=== PATIENT | female | born 1930 | race Caucasian/White ===

== ENCOUNTER 2018-09-30 23:21 | Inpatient (IN) | payer MEDICARE, OTHER ==
[~2018-09-30] VITALS: Ht 162.6 cm; Wt 72.6 kg
[2018-09-30 23:25] VITALS: BP 127/62
[2018-09-30] MEDS ORDERED: CRESTOR10 M2 ORAL (23:25)
[2018-09-30] MEDS ORDERED: ISOSORBIDE DINI10 M1 PO (23:25)
[2018-09-30] MEDS ORDERED: METOPROLOL SUCC25 MG ORAL (23:25)
[2018-09-30] MEDS ORDERED: ASPIR 8181 MG ORAL (23:25)
[2018-09-30] MEDS ORDERED: METFORMIN HCL500 M1 ORAL (23:25)
[2018-10-01] VITALS (7 sets, daily range): BP systolic 115–150; BP diastolic 53–94
[2018-10-01 00:05] LABS: BASOPHILS % (AUTO) 0.8 % (0.0-2.0); EOSINOPHILS % (AUTO) 2.8 % (0.0-3.0); HEMATOCRIT 30.6 % (37.0-47.0); LYMPHOCYTES % (AUTO) 17.8 % (20.0-45.0); MEAN CORPUSCULAR VOLUME 91 FL (80-99); NEUTROPHILS % (AUTO) 74.6 % (45.0-75.0); PLATELET COUNT 353 K/UL (150-450); RED BLOOD COUNT 3.36 M/UL (4.20-5.40); WHITE BLOOD COUNT 14.3 K/UL (4.8-10.8)
--- NOTE | 2018-10-01 00:24 | Diagnostic Imaging Report ---
EXAM: CT Head Without Intravenous Contrast CLINICAL HISTORY: SYNCOPE TECHNIQUE: Axial computed tomography images of the head/brain without intravenous contrast. CTDI is 70.38 mGy and DLP is 1435 mGy-cm. One or more of the following dose reduction techniques were used: automated exposure control, adjustment of the mA and/or kV according to patient size, use of iterative reconstruction technique. COMPARISON: No relevant prior studies available. FINDINGS: Brain: No hemorrhage. No mass effect. Atrophy. White matter hypodensities. Encephalomalacia right MCA territory. No CT evidence for acute large vessel infarct. MRI more sensitive, if indicated. Ventricles: Prominent compatible with atrophy. Ex vacuo dilatation of the right lateral ventricle. Bones/joints: Hyperostosis Sinuses: Well aerated as visualized. Mastoid air cells: Well aerated as visualized. IMPRESSION: No acute intracranial findings
--- NOTE | 2018-10-01 00:33 | Diagnostic Imaging Report ---
EXAM: XR Chest, 1 View CLINICAL HISTORY: SYNCOPE TECHNIQUE: Frontal view of the chest. COMPARISON: No relevant prior studies available. FINDINGS/IMPRESSION: Patient slightly rotated. Suspect cardiac silhouette borderline in size allowing for technique. Suspect mild blunting of left costophrenic angle related to summation. Small pleural effusion less likely. No overt edema, consolidation or other acute cardiopulmonary findings.
[2018-10-01 00:38] LABS: INR 0.9 (0.9-1.1)
--- NOTE | 2018-10-01 00:50 | Emergency Room Report ---
History of Present Illness General Chief Complaint: Syncope Source: Family Member, EMS Present Illness HPI Patient presents after syncopal episode. She was unresponsive for a short period time while she was sitting up. The patient has dementia and therefore her symptoms are difficult to ascertain. According to her daughter she complains about chronic back pain and also right sided back chest pain. She feels this is more a positional problem as the patient spends long hours sitting without being moved much. The patient is mostly bedridden. There is no vomiting associated with this. The patient's been able to eat without difficulty. They deny any fever. The patient recently underwent a vascular procedure for peripheral vascular disease at [facility]. The patient has a history of atrial fibrillation and is taking Elaquis and aspirin. Post stroke. Attempt to review medical records only reveal outpatient ophthalmologic surgery. Allergies: Coded Allergies: No Known Allergies (Unverified , 09/30/18) Patient History Limited by: medical condition Past Medical History: see triage record, old chart reviewed Social History: Denies: smoking Social History Narrative SNF Last Menstrual Period: n/a Now: No Reviewed Nursing Documentation: PMH: Agreed; PSxH: Agreed Nursing Documentation-PMH Past Medical History: No History, Except For Hx Hypertension: Yes Hx Diabetes: Yes Review of Systems All Other Systems: limited Physical Exam Vital Signs Date Time Temp Pulse Resp B/P (MAP) Pulse Ox O2 Delivery O2 Flow Rate FiO2 09/30/18 23:20 98.2 19 18 127/62 98 Room Air General Appearance: no apparent distress, non-toxic, Chronically Ill Eyes: bilateral eye normal inspection, bilateral eye PERRL ENT: moist mucus membranes Neck: full range of motion, supple Respiratory: lungs clear, normal breath sounds Cardiovascular #1: regular rate, rhythm Cardiovascular #2: 2+ radial (L) Gastrointestinal: normal inspection, normal bowel sounds, non tender, overweight Genitourinary: no CVA tenderness Musculoskeletal: other - extensor contractures L foot Neurologic: alert, motor weakness - L sided, other - babbling but occasionally answers daughter Psychiatric: mood/affect normal, other - no recent memory per daughter which is baseline Skin: normal color Medical Decision Making Diagnostic Impression: Primary Impression: Syncope Qualified Codes: R55 - Syncope and collapse Additional Impressions: UTI (urinary tract infection) Qualified Codes: N39.0 - Urinary tract infection, site not specified Leukocytosis Qualified Codes: D72.828 - Other elevated white blood cell count ER Course Patient who is unable to give history presents after observed syncope. DDX: AMI , ACS, arrhythmia, occult infection, electrolyte abnormality, dehydration amongst others. Evaluation with EKG, CT head, labs. Treatment with IV hydration. Higher risk of intracranial bleed as on blood thinners. EKG without injury - of note - she in is NST (not A fib). CXR no iniltrate. CT with old stroke. Labs with leukocytosis. UA with pyuria. Elevated BUN. Antibiotics begun. Discussed findings with Dr. Simeon and daughter. He will consult cardiology. Patient essentially the same. Needs admission to telemetry and continued evaluation. Patient stable for outpatient observation and treatment. Laboratory Tests Test 09/30/18 23:46 10/01/18 01:00 White Blood Count 14.3 K/UL (4.8-10.8) H Red Blood Count 3.36 M/UL (4.20-5.40) L Hemoglobin 10.0 G/DL (12.0-16.0) L Hematocrit 30.6 % (37.0-47.0) L Mean Corpuscular Volume 91 FL (80-99) Mean Corpuscular Hemoglobin 29.8 PG (27.0-31.0) Mean Corpuscular Hemoglobin Concent 32.7 G/DL (32.0-36.0) Red Cell Distribution Width 12.0 % (11.6-14.8) Platelet Count 353 K/UL (150-450) Mean Platelet Volume 5.8 FL (6.5-10.1) L Neutrophils (%) (Auto) 74.6 % (45.0-75.0) Lymphocytes (%) (Auto) 17.8 % (20.0-45.0) L Monocytes (%) (Auto) 4.0 % (1.0-10.0) Eosinophils (%) (Auto) 2.8 % (0.0-3.0) Basophils (%) (Auto) 0.8 % (0.0-2.0) Prothrombin Time 9.5 SEC (9.30-11.50) Prothrombin Time INR 0.9 (0.9-1.1) PTT 27 SEC (23-33) Sodium Level 135 MMOL/L (136-145) L Potassium Level 4.5 MMOL/L (3.5-5.1) Chloride Level 100 MMOL/L (98-107) Carbon Dioxide Level 24 MMOL/L (21-32) Anion Gap 11 mmol/L (5-15) Blood Urea Nitrogen 40 mg/dL (7-18) H Creatinine 1.3 MG/DL (0.55-1.30) Estimate Glomerular Filtration Rate mL/min (>60) Glucose Level 204 MG/DL (74-106) H Calcium Level 9.1 MG/DL (8.5-10.1) Total Bilirubin 0.3 MG/DL (0.2-1.0) Aspartate Amino Transferase (AST) 11 U/L (15-37) L Alanine Aminotransferase (ALT) 27 U/L (12-78) Alkaline Phosphatase 73 U/L (46-116) Total Creatine Kinase 25 U/L (26-308) L Troponin I 0.016 ng/mL (0.000-0.056) Pro-B-Type Natriuretic Peptide 273 pg/mL (0-125) H Total Protein 6.9 G/DL (6.4-8.2) Albumin 2.9 G/DL (3.4-5.0) L Globulin 4.0 g/dL Albumin/Globulin Ratio 0.7 (1.0-2.7) L Urine Color Pale yellow Urine Appearance Slightly cloudy Urine pH 6 (4.5-8.0) Urine Specific [place] 1.010 (1.005-1.035) Urine Protein 1+ (NEGATIVE) H Urine Glucose (UA) Negative (NEGATIVE) Urine Ketones Negative (NEGATIVE) Urine Blood 1+ (NEGATIVE) H Urine Nitrite Negative (NEGATIVE) Urine Bilirubin Negative (NEGATIVE) Urine Urobilinogen Normal MG/DL (0.0-1.0) Urine Leukocyte Esterase 3+ (NEGATIVE) H Urine RBC 0-2 /HPF (0 - 2) Urine WBC 15-20 /HPF (0 - 2) H Urine Squamous Epithelial Cells Moderate /LPF (NONE/OCC) H Urine Bacteria Few /HPF (NONE) Urine Yeast Few /HPF (NONE) H EKG Diagnostic Results Rate: normal Rhythm: NSR ST Segments: no acute changes Rhythm Strip Diag. Results EP Interpretation: yes Rhythm: NSR, no PVC's, no ectopy Chest X-Ray Diagnostic Results Chest X-Ray Diagnostic Results : Chest X-Ray Ordered: Yes # of Views/Limited/Complete: 1 View Indication: Other EP Interpretation: Yes Interpretation: no consolidation, no effusion, no pneumothorax, other - Senile chest Impression: Other Electronically Signed by: Electronically signed by Casper Brown MD CT/MRI/US Diagnostic Results CT/MRI/US Diagnostic Results : Imaging Test Ordered: head Impression R MCA encephalomalacia Last Vital Signs Date Time Temp Pulse Resp B/P (MAP) Pulse Ox O2 Delivery O2 Flow Rate FiO2 10/01/18 06:00 Room Air 10/01/18 04:00 76 10/01/18 04:00 97.3 16 121/57 (78) 98 Status: improved Disposition: ADMITTED INPATIENT Condition: Serious Referrals: LUPE SIMEON (PCP) Casper Brown MD Oct 01, 2018 00:50
[2018-10-01 00:56] LABS: ANION GAP 11 mmol/L (5-15); BLOOD UREA NITROGEN 40 mg/dL (7-18); CALCIUM 9.1 MG/DL (8.5-10.1); CARBON DIOXIDE 24 MMOL/L (21-32); CHLORIDE 100 MMOL/L (98-107); CREATININE 1.3 MG/DL (0.55-1.30); POTASSIUM 4.5 MMOL/L (3.5-5.1); SODIUM 135 MMOL/L (136-145)
[2018-10-01 01:10] LABS: ALANINE AMINOTRANSFERASE 27 U/L (12-78); ALBUMIN 2.9 G/DL (3.4-5.0); ALBUMIN/GLOBULIN RATIO 0.7 (1.0-2.7); ALKALINE PHOSPHATASE 73 U/L (46-116); ASPARTATE AMINO TRANSFERASE 11 U/L (15-37); BILIRUBIN,TOTAL 0.3 MG/DL (0.2-1.0); CREATINE KINASE 25 U/L (26-308)
[2018-10-01 01:39] LABS: APPEARANCE,URINE SLIGHTLY CLOUDY; BILIRUBIN, URINE NEGATIVE (NEGATIVE); COLOR,URINE PALE YELLOW; GLUCOSE, URINE (UA) NEGATIVE (NEGATIVE); KETONES,URINE NEGATIVE (NEGATIVE); LEUKOCYTE ESTERASE ,URINE 3+ (NEGATIVE); NITRITE,URINE NEGATIVE (NEGATIVE); PH,URINE 6 (4.5-8.0); PROTEIN,URINE 1+ (NEGATIVE); UROBILINOGEN,URINE NORMAL MG/DL (0.0-1.0)
[2018-10-01] MEDS ORDERED: cefTRIAXone 1 GM in D5W 55 ML IVPB ONE (02:00)
[2018-10-01] MEDS ORDERED: TraZODone 50mg tab ORAL PRN (03:00)
[2018-10-01 06:05] LABS: BASOPHILS % (AUTO) 0.5 % (0.0-2.0); EOSINOPHILS % (AUTO) 0.9 % (0.0-3.0); HEMATOCRIT 31.9 % (37.0-47.0); HEMOGLOBIN 10.2 G/DL (12.0-16.0); LYMPHOCYTES % (AUTO) 14.2 % (20.0-45.0); MEAN CORPUSCULAR VOLUME 93 FL (80-99); MONOCYTES % (AUTO) 2.5 % (1.0-10.0); PLATELET COUNT 359 K/UL (150-450); RED BLOOD COUNT 3.44 M/UL (4.20-5.40); RED CELL DISTRIBUTION WIDTH 12.2 % (11.6-14.8); WHITE BLOOD COUNT 12.2 K/UL (4.8-10.8)
[2018-10-01 06:24] LABS: ANION GAP 8 mmol/L (5-15); BLOOD UREA NITROGEN 41 mg/dL (7-18); CALCIUM 9.4 MG/DL (8.5-10.1); CARBON DIOXIDE 27 MMOL/L (21-32); CHLORIDE 100 MMOL/L (98-107); CREATININE 1.3 MG/DL (0.55-1.30); POTASSIUM 5.4 MMOL/L (3.5-5.1); SODIUM 135 MMOL/L (136-145)
[2018-10-01] MEDS: NovoLOG Insulin Flexpen SUBQ SCH ×4 (06:33→21:54)
[2018-10-01] MEDS: Aspirin Baby 81mg ORAL SCH (08:42)
[2018-10-01] MEDS: Eliquis 2.5mg tablet ORAL SCH ×2 (08:42→18:10)
[2018-10-01] MEDS ORDERED: Sodium Polystyrene Sulfonate 15gm Powder ORAL SCH (09:00)
[2018-10-01] MEDS ORDERED: Metoprolol Succinate XL 25mg tab ORAL SCH (09:00)
--- NOTE | 2018-10-01 14:20 | History & Physical ---
History of Present Illness General Date patient seen: Oct 01, 2018 Reason for Hospitalization: Syncope Present Illness HPI H & P dictated [id number] Nabila Simeon< Allergies: Coded Allergies: No Known Allergies (Unverified , 09/30/18) Medication History Scheduled Aspirin* (Aspir 81*), 81 MG ORAL DAILY, (Reported) Metformin Hcl* (Metformin Hcl*), 500 MG ORAL TWICE A DAY, (Reported) Metoprolol Succinate* (Metoprolol Succinate*), 25 MG ORAL DAILY, (Reported) Rosuvastatin Calcium* (Crestor*), 10 MG ORAL DAILY, (Reported) Miscellaneous Medications Isosorbide Dinitrate (Isosorbide Dinitrate), 10 MG PO, (Reported) Patient History Healthcare decision maker Resuscitation status Full Code Advanced Directive on File Review of Systems Review of Symptoms General ROS: no weight loss or fever Psychological ROS: no depression or mood changes, no memory loss Ophthalmic ROS: no visual changes or eye irritation ENT ROS: no nasal congestion, hearing loss, dizziness Allergy and Immunology ROS: no allergic symptoms or urticaria Hematological and Lymphatic ROS: no swollen glands, unusual bleeding or bruising Endocrine ROS: no polyuria, polydipsia, weight changes, temperature intolerance Respiratory ROS: no cough, shortness of breath, or wheezing Cardiovascular ROS: no chest pain or dyspnea on exertion Gastrointestinal ROS: denies abdominal pain, bright red blood in stool. Musculoskeletal ROS: no myalgias or arthralgias Neurological ROS: no TIA or stroke symptoms Dermatological ROS: no new or changing skin lesions, rashes or pruritis Physical Exam Physical Exam General appearance: alert, cooperative, no distress, appears stated age Head: Normocephalic, without obvious abnormality, atraumatic Eyes: conjunctivae/corneas clear. PERRL, EOM's intact. Fundi benign Throat: Lips, mucosa, and tongue normal. Teeth and gums normal Neck: supple, symmetrical, trachea midline, no adenopathy, thyroid: not enlarged, symmetric, no tenderness/mass/nodules, no carotid bruit and no JVD Lungs: clear to auscultation bilaterally Heart: regular rate and rhythm, S1, S2 normal, no murmur, click, rub or gallop Abdomen: soft, non-tender. Bowel sounds normal. No masses, no organomegaly Extremities: extremities normal, atraumatic, no cyanosis or edema Pulses: 2+ and symmetric Skin: Skin color, texture, turgor normal. No rashes or lesions Neurologic: Grossly normal Last 24 Hour Vital Signs Date Time Temp Pulse Resp B/P (MAP) Pulse Ox O2 Delivery O2 Flow Rate FiO2 10/01/18 12:00 98.0 87 20 150/73 (98) 96 10/01/18 11:27 85 10/01/18 08:43 115/94 10/01/18 08:42 84 115/94 10/01/18 08:00 97.0 84 20 115/94 (101) 99 10/01/18 07:36 86 10/01/18 06:00 Room Air 10/01/18 06:00 Room Air 10/01/18 04:00 76 10/01/18 04:00 97.3 77 16 121/57 (78) 98 10/01/18 03:01 77 10/01/18 02:30 98.2 79 18 124/76 97 Room Air 10/01/18 02:20 Room Air 10/01/18 02:20 97.9 75 16 135/53 (80) 98 10/01/18 01:41 98.2 77 18 119/71 97 Room Air 09/30/18 23:25 98.2 82 18 127/62 98 Room Air 09/30/18 23:20 98.2 19 18 127/62 98 Room Air Intake and Output 09/30/18 10/01/18 19:00 07:00 Intake Total 0 ml Balance 0 ml Intake Oral 0 ml Laboratory Tests Test 09/30/18 23:46 10/01/18 01:00 10/01/18 04:30 10/01/18 10:00 White Blood Count 14.3 K/UL (4.8-10.8) H 12.2 K/UL (4.8-10.8) H Red Blood Count 3.36 M/UL (4.20-5.40) L 3.44 M/UL (4.20-5.40) L Hemoglobin 10.0 G/DL (12.0-16.0) L 10.2 G/DL (12.0-16.0) L Hematocrit 30.6 % (37.0-47.0) L 31.9 % (37.0-47.0) L Mean Corpuscular Volume 91 FL (80-99) 93 FL (80-99) Mean Corpuscular Hemoglobin 29.8 PG (27.0-31.0) 29.6 PG (27.0-31.0) Mean Corpuscular Hemoglobin Concent 32.7 G/DL (32.0-36.0) 32.0 G/DL (32.0-36.0) Red Cell Distribution Width 12.0 % (11.6-14.8) 12.2 % (11.6-14.8) Platelet Count 353 K/UL (150-450) 359 K/UL (150-450) Mean Platelet Volume 5.8 FL (6.5-10.1) L 5.9 FL (6.5-10.1) L Neutrophils (%) (Auto) 74.6 % (45.0-75.0) 82.0 % (45.0-75.0) H Lymphocytes (%) (Auto) 17.8 % (20.0-45.0) L 14.2 % (20.0-45.0) L Monocytes (%) (Auto) 4.0 % (1.0-10.0) 2.5 % (1.0-10.0) Eosinophils (%) (Auto) 2.8 % (0.0-3.0) 0.9 % (0.0-3.0) Basophils (%) (Auto) 0.8 % (0.0-2.0) 0.5 % (0.0-2.0) Prothrombin Time 9.5 SEC (9.30-11.50) Prothromb Time International Ratio 0.9 (0.9-1.1) Activated Partial Thromboplast Time 27 SEC (23-33) Sodium Level 135 MMOL/L (136-145) L 135 MMOL/L (136-145) L Potassium Level 4.5 MMOL/L (3.5-5.1) 5.4 MMOL/L (3.5-5.1) H Chloride Level 100 MMOL/L (98-107) 100 MMOL/L (98-107) Carbon Dioxide Level 24 MMOL/L (21-32) 27 MMOL/L (21-32) Anion Gap 11 mmol/L (5-15) 8 mmol/L (5-15) Blood Urea Nitrogen 40 mg/dL (7-18) H 41 mg/dL (7-18) H Creatinine 1.3 MG/DL (0.55-1.30) 1.3 MG/DL (0.55-1.30) Estimat Glomerular Filtration Rate mL/min (>60) mL/min (>60) Glucose Level 204 MG/DL (74-106) H 232 MG/DL (74-106) H Calcium Level 9.1 MG/DL (8.5-10.1) 9.4 MG/DL (8.5-10.1) Total Bilirubin 0.3 MG/DL (0.2-1.0) Aspartate Amino Transf (AST/SGOT) 11 U/L (15-37) L Alanine Aminotransferase (ALT/SGPT) 27 U/L (12-78) Alkaline Phosphatase 73 U/L (46-116) Total Creatine Kinase 25 U/L (26-308) L Troponin I 0.016 ng/mL (0.000-0.056) 0.012 ng/mL (0.000-0.056) 0.001 ng/mL (0.000-0.056) Pro-B-Type Natriuretic Peptide 273 pg/mL (0-125) H Total Protein 6.9 G/DL (6.4-8.2) Albumin 2.9 G/DL (3.4-5.0) L Globulin 4.0 g/dL Albumin/Globulin Ratio 0.7 (1.0-2.7) L Urine Color Pale yellow Urine Appearance Slightly cloudy Urine pH 6 (4.5-8.0) Urine Specific [place] 1.010 (1.005-1.035) Urine Protein 1+ (NEGATIVE) H Urine Glucose (UA) Negative (NEGATIVE) Urine Ketones Negative (NEGATIVE) Urine Blood 1+ (NEGATIVE) H Urine Nitrite Negative (NEGATIVE) Urine Bilirubin Negative (NEGATIVE) Urine Urobilinogen Normal MG/DL (0.0-1.0) Urine Leukocyte Esterase 3+ (NEGATIVE) H Urine RBC 0-2 /HPF (0 - 2) Urine WBC 15-20 /HPF (0 - 2) H Urine Squamous Epithelial Cells Moderate /LPF (NONE/OCC) H Urine Bacteria Few /HPF (NONE) Urine Yeast Few /HPF (NONE) H Microbiology Date/Time Source Procedure Growth Status 10/01/18 01:00 Rectum Received Height (Feet): 5 Height (Inches): 4.00 Weight (Pounds): 160 Medications Current Medications Medications (Trade) Dose Ordered Sig/Dulce Maria Route PRN Reason Start Time Stop Time Status Last Admin Dose Admin Acetaminophen (Tylenol) 650 mg Q6H PRN ORAL Mild Pain/Temp > 100.5 10/01/18 03:00 10/31/18 02:59 Apixaban (Eliquis) 5 mg BID ORAL 10/01/18 09:00 10/31/18 08:59 10/01/18 08:42 Aspirin (ASA) 81 mg DAILY ORAL 10/01/18 09:00 10/31/18 08:59 10/01/18 08:42 Atorvastatin Calcium (Lipitor) 40 mg BEDTIME ORAL 10/01/18 21:00 10/31/18 20:59 Ceftriaxone Sodium 1 gm/ Dextrose 55 ml @ 110 mls/hr Q24H IVPB 10/02/18 02:00 10/09/18 01:59 Dextrose (Dextrose 50%) 25 ml Q30M PRN IV Hypoglycemia 10/01/18 03:15 10/31/18 03:14 Dextrose (Dextrose 50%) 50 ml Q30M PRN IV Hypoglycemia 10/01/18 03:15 10/31/18 03:14 Insulin Aspart (NovoLOG) BEFORE MEALS AND HS SUBQ 10/01/18 06:30 10/31/18 06:29 10/01/18 12:39 Isosorbide Dinitrate (Isordil) 10 mg DAILY ORAL 10/01/18 09:00 10/31/18 08:59 10/01/18 08:43 Metoprolol Succinate (Toprol XL) 25 mg DAILY ORAL 10/01/18 09:00 10/31/18 08:59 10/01/18 08:42 Pantoprazole (Protonix) 40 mg DAILY ORAL 10/01/18 09:00 10/31/18 08:59 10/01/18 08:43 Trazodone HCl (Desyrel) 50 mg BEDTIME PRN ORAL Insomnia 10/01/18 03:00 10/31/18 02:59 10/01/18 03:29 [facility] Hospital declaration INPATIENT level of care is warranted for this patient because patient is a 89 year old with who presents with suspicion of . I have a high level of concern because . Patient is at high risk for . Plan of care/treatment include . Patient care is expected to be greater than 2 midnights. OBSERVATION level of care is warranted for this patient. Patient is a 89 year old with who presents with . Patient will be admitted for 1 midnight, but if additional night(s) is/are necessary, patient will be converted to inpatient status for the entire hospitalization Disposition: Once the patient is stable to leave the hospital, I anticipate the patient will likely be discharged to the following environment: Estimated discharge date: I spent 70 minutes on this patient's case, and minutes was dedicated to counseling and/or care coordination. MIPS (Merit-based Incentive Payment System) Applicable CPT: 50376, 66610 CHECK ALL THAT ARE MET: Measure #5 (CHF): All ages. Prescribe ALEXSANDRA/ARB upon discharge for patients with left ventricular systolic dysfunction. If not, the reason is clearly documented in the medical chart. Measure #8 (CHF): All ages. Prescribe a beta huong upon discharge for patients with left ventricular systolic dysfunction. If not, the reason is clearly documented in the medical chart. Measure #47 Advance care plan or surrogate decision maker documented in the medical record. Measure #130 The provider has documented, updated, or reviewed the patients current medication list and has documented it in the patients note. Measure #374 (All): Send report to referring provider. Measure #407(Sepsis due to MSSA bacteremia): Age 18+ Patient treated with a beta-lactam antibiotic (Nafcillin, Oxacillin or Cefazolin) as definitive therapy. MEDICAL COMPLEXITY High complexity medical decision making (need 2/3 categories) Problem - need 4 points Acute/new problem with new plan for workup (4 points, 1 max) Acute/new problem without additional workup (3 points, 1 max) Unstable chronic problem actively being managed (2 point each, 2 max) Stable chronic problem actively being managed (1 point each, 2 max) Self-limited/transient process (constipation, muscle ache, etc) (1 point each , 2 max) Data - need 4 points Reviewed labs/imaging studies (1 points, 2 max) Independent review of imaging (EKG, xrays, etc) (2 points, 2 max) Discussed case with consult/other MD/RN (2 points, 2 max) High Risk - qualify if have one of the following: Severe exacerbation of acute problem, acute mental status change, IV narcotics , monitoring drug levels (vancomycin, INR, tacrolimus etc) Nabila Simeon MD Oct 01, 2018 14:20
--- NOTE | 2018-10-01 15:18 | Cardiology Report ---
APPROVED REPORT EXAM: Two-dimensional and M-mode echocardiogram with Doppler and color Doppler. INDICATION Syncope M-Mode DIMENSIONS IVSd1.4 (0.7-1.1cm)Left Atrium (MM)3.7 (1.6-4.0cm) LVDd4.9 (3.5-5.6cm)Aortic Root3.1 (2.0-3.7cm) PWd1.1 (0.7-1.1cm)Aortic Cusp Exc.1.6 (1.5-2.0cm) LVDs2.9 (2.5-4.0cm) PWs1.4 cm Normal left ventricular chamber size, systolic function and wall motion. Left ventricular ejection fraction estimated to be 60 %. Mild left ventricular hypertrophy. Anterior Echo-free space, may be due to pericardial fat or effusion. All other cardiac chamber sizes are within normal limits. Focal aortic valve sclerosis with adequate cusp excursion. Thickened mitral valve leaflets with normal excursion. Mild mitral annulus and aortic root calcification. Pulmonic valve not well visualized. Normal tricuspid valve structure. IVC is normal in size with physiological collapse. A color flow and spectral Doppler study was performed and revealed: No aortic insufficiency. No mitral regurgitation. Mitral diastolic velocities suggest mild left ventricular diastolic dysfunction (Grade I). Trace tricuspid regurgitation. Tricuspid systolic velocities suggests peak right ventricular systolic pressure of 14 mmHg. No pulmonic regurgitation present.
--- NOTE | 2018-10-01 16:32 | Consultation ---
History of Present Illness General Date patient seen: Oct 01, 2018 Chief Complaint: Syncope Referring physician: Dr. Brady Caceres Present Illness HPI Alec Heller is an 88-year-old woman with a history of coronary artery disease , atrial fibrillation (on Elaquis), stroke, dementia, remote history of myocardial infarction, type 2 diabetes, hyperlipidemia, hypertension, and peripheral vascular disease, who was admitted following a syncopal episode. It is reported that, while eating dinner with her family, she slumped over and became transiently unresponsive. According to her daughter she complains about chronic back pain and also right sided back chest pain. She feels this is more a positional problem as the patient spends long hours sitting without being moved much. The patient is mostly bedridden/ chair bound. At the time of my visit, she is alert, interactive and following general commands. She is Farsi speaking only so her precise orientation cannot be obtained. However she is not in any distress and completely alert at this time. Allergies: Coded Allergies: No Known Allergies (Unverified , 09/30/18) Medication History Scheduled Aspirin* (Aspir 81*), 81 MG ORAL DAILY, (Reported) Metformin Hcl* (Metformin Hcl*), 500 MG ORAL TWICE A DAY, (Reported) Metoprolol Succinate* (Metoprolol Succinate*), 25 MG ORAL DAILY, (Reported) Rosuvastatin Calcium* (Crestor*), 10 MG ORAL DAILY, (Reported) Miscellaneous Medications Isosorbide Dinitrate (Isosorbide Dinitrate), 10 MG PO, (Reported) Patient History Limited by: language barrier History Provided By: Medical Record Healthcare decision maker Resuscitation status Full Code Advanced Directive on File Review of Systems All Other Systems: negative except mentioned in HPI Physical Exam General Appearance: WD/WN, no apparent distress, alert, confused HEENT: normocephalic, atraumatic, anicteric, mucous membranes moist, PERRL, EOMI, pharynx normal, supple, no JVD Neck: non-tender, normal alignment, supple, normal inspection Respiratory/Chest: chest wall non-tender Extremities: normal range of motion, non-tender, normal inspection, no calf tenderness, normal capillary refill, non-pitting Skin Exam: normal pigmentation, warm/dry Neurologic: roll tester II-XII grossly normal, no motor/sensory deficits, alert, responsive, normal mood/affect Last 24 Hour Vital Signs Date Time Temp Pulse Resp B/P (MAP) Pulse Ox O2 Delivery O2 Flow Rate FiO2 10/01/18 16:00 97.6 80 20 143/71 (95) 98 10/01/18 12:00 98.0 87 20 150/73 (98) 96 10/01/18 11:27 85 10/01/18 08:43 115/94 10/01/18 08:42 84 115/94 10/01/18 08:00 97.0 84 20 115/94 (101) 99 10/01/18 07:36 86 10/01/18 06:00 Room Air 10/01/18 06:00 Room Air 10/01/18 04:00 76 10/01/18 04:00 97.3 77 16 121/57 (78) 98 10/01/18 03:01 77 10/01/18 02:30 98.2 79 18 124/76 97 Room Air 10/01/18 02:20 Room Air 10/01/18 02:20 97.9 75 16 135/53 (80) 98 10/01/18 01:41 98.2 77 18 119/71 97 Room Air 09/30/18 23:25 98.2 82 18 127/62 98 Room Air 09/30/18 23:20 98.2 19 18 127/62 98 Room Air Intake and Output 09/30/18 10/01/18 19:00 07:00 Intake Total 0 ml Balance 0 ml Intake Oral 0 ml Laboratory Tests Test 09/30/18 23:46 10/01/18 01:00 10/01/18 04:30 10/01/18 10:00 White Blood Count 14.3 K/UL (4.8-10.8) H 12.2 K/UL (4.8-10.8) H Red Blood Count 3.36 M/UL (4.20-5.40) L 3.44 M/UL (4.20-5.40) L Hemoglobin 10.0 G/DL (12.0-16.0) L 10.2 G/DL (12.0-16.0) L Hematocrit 30.6 % (37.0-47.0) L 31.9 % (37.0-47.0) L Mean Corpuscular Volume 91 FL (80-99) 93 FL (80-99) Mean Corpuscular Hemoglobin 29.8 PG (27.0-31.0) 29.6 PG (27.0-31.0) Mean Corpuscular Hemoglobin Concent 32.7 G/DL (32.0-36.0) 32.0 G/DL (32.0-36.0) Red Cell Distribution Width 12.0 % (11.6-14.8) 12.2 % (11.6-14.8) Platelet Count 353 K/UL (150-450) 359 K/UL (150-450) Mean Platelet Volume 5.8 FL (6.5-10.1) L 5.9 FL (6.5-10.1) L Neutrophils (%) (Auto) 74.6 % (45.0-75.0) 82.0 % (45.0-75.0) H Lymphocytes (%) (Auto) 17.8 % (20.0-45.0) L 14.2 % (20.0-45.0) L Monocytes (%) (Auto) 4.0 % (1.0-10.0) 2.5 % (1.0-10.0) Eosinophils (%) (Auto) 2.8 % (0.0-3.0) 0.9 % (0.0-3.0) Basophils (%) (Auto) 0.8 % (0.0-2.0) 0.5 % (0.0-2.0) Prothrombin Time 9.5 SEC (9.30-11.50) Prothromb Time International Ratio 0.9 (0.9-1.1) Activated Partial Thromboplast Time 27 SEC (23-33) Sodium Level 135 MMOL/L (136-145) L 135 MMOL/L (136-145) L Potassium Level 4.5 MMOL/L (3.5-5.1) 5.4 MMOL/L (3.5-5.1) H Chloride Level 100 MMOL/L (98-107) 100 MMOL/L (98-107) Carbon Dioxide Level 24 MMOL/L (21-32) 27 MMOL/L (21-32) Anion Gap 11 mmol/L (5-15) 8 mmol/L (5-15) Blood Urea Nitrogen 40 mg/dL (7-18) H 41 mg/dL (7-18) H Creatinine 1.3 MG/DL (0.55-1.30) 1.3 MG/DL (0.55-1.30) Estimat Glomerular Filtration Rate mL/min (>60) mL/min (>60) Glucose Level 204 MG/DL (74-106) H 232 MG/DL (74-106) H Calcium Level 9.1 MG/DL (8.5-10.1) 9.4 MG/DL (8.5-10.1) Total Bilirubin 0.3 MG/DL (0.2-1.0) Aspartate Amino Transf (AST/SGOT) 11 U/L (15-37) L Alanine Aminotransferase (ALT/SGPT) 27 U/L (12-78) Alkaline Phosphatase 73 U/L (46-116) Total Creatine Kinase 25 U/L (26-308) L Troponin I 0.016 ng/mL (0.000-0.056) 0.012 ng/mL (0.000-0.056) 0.001 ng/mL (0.000-0.056) Pro-B-Type Natriuretic Peptide 273 pg/mL (0-125) H Total Protein 6.9 G/DL (6.4-8.2) Albumin 2.9 G/DL (3.4-5.0) L Globulin 4.0 g/dL Albumin/Globulin Ratio 0.7 (1.0-2.7) L Urine Color Pale yellow Urine Appearance Slightly cloudy Urine pH 6 (4.5-8.0) Urine Specific [place] 1.010 (1.005-1.035) Urine Protein 1+ (NEGATIVE) H Urine Glucose (UA) Negative (NEGATIVE) Urine Ketones Negative (NEGATIVE) Urine Blood 1+ (NEGATIVE) H Urine Nitrite Negative (NEGATIVE) Urine Bilirubin Negative (NEGATIVE) Urine Urobilinogen Normal MG/DL (0.0-1.0) Urine Leukocyte Esterase 3+ (NEGATIVE) H Urine RBC 0-2 /HPF (0 - 2) Urine WBC 15-20 /HPF (0 - 2) H Urine Squamous Epithelial Cells Moderate /LPF (NONE/OCC) H Urine Bacteria Few /HPF (NONE) Urine Yeast Few /HPF (NONE) H Microbiology Date/Time Source Procedure Growth Status 10/01/18 01:00 Rectum Received Height (Feet): 5 Height (Inches): 4.00 Weight (Pounds): 160 Medications Current Medications Medications (Trade) Dose Ordered Sig/Dulce Maria Route PRN Reason Start Time Stop Time Status Last Admin Dose Admin Acetaminophen (Tylenol) 650 mg Q6H PRN ORAL Mild Pain/Temp > 100.5 10/01/18 03:00 10/31/18 02:59 Apixaban (Eliquis) 5 mg BID ORAL 10/01/18 09:00 10/31/18 08:59 10/01/18 08:42 Aspirin (ASA) 81 mg DAILY ORAL 10/01/18 09:00 10/31/18 08:59 10/01/18 08:42 Atorvastatin Calcium (Lipitor) 40 mg BEDTIME ORAL 10/01/18 21:00 10/31/18 20:59 Ceftriaxone Sodium 1 gm/ Dextrose 55 ml @ 110 mls/hr Q24H IVPB 10/02/18 02:00 10/09/18 01:59 Dextrose (Dextrose 50%) 25 ml Q30M PRN IV Hypoglycemia 10/01/18 03:15 10/31/18 03:14 Dextrose (Dextrose 50%) 50 ml Q30M PRN IV Hypoglycemia 10/01/18 03:15 10/31/18 03:14 Insulin Aspart (NovoLOG) BEFORE MEALS AND HS SUBQ 10/01/18 06:30 10/31/18 06:29 10/01/18 12:39 Isosorbide Dinitrate (Isordil) 10 mg DAILY ORAL 10/01/18 09:00 10/31/18 08:59 10/01/18 08:43 Metoprolol Succinate (Toprol XL) 25 mg DAILY ORAL 10/01/18 09:00 10/31/18 08:59 10/01/18 08:42 Pantoprazole (Protonix) 40 mg DAILY ORAL 10/01/18 09:00 10/31/18 08:59 10/01/18 08:43 Trazodone HCl (Desyrel) 50 mg BEDTIME PRN ORAL Insomnia 10/01/18 03:00 10/31/18 02:59 10/01/18 03:29 Assessment/Plan Problem List: (1) Leukocytosis ICD Codes: D72.829 - Elevated white blood cell count, unspecified SNOMED: 499161258, 166184347 Qualifiers: Qualified Codes: D72.828 - Other elevated white blood cell count (2) UTI (urinary tract infection) ICD Codes: N39.0 - Urinary tract infection, site not specified SNOMED: 47794149, 573053422 Qualifiers: Qualified Codes: N39.0 - Urinary tract infection, site not specified (3) Syncope Assessment & Plan: Appears to be returned to baseline functioning. As per nursing report, family have visited with patient and patient is returned to baseline- interacting appropriately in Far with family members. She has dementia per report but has not been drowsy or unresponsive since her admitting episode. ICD Codes: R55 - Syncope and collapse SNOMED: 103780337 Qualifiers: Qualified Codes: R55 - Syncope and collapse Status: doing well, stable, tolerating diet Treatment Plan: Q4 Hour Neuro Checks Maintain SBP < 140 IV Hydration Abx as per ID for treatment of UTI Na 135-145 Prevent Delirium: Melatonin 3mg QHS Encourage frequent family visits Reorient patient frequently to location/circumstances Avoid administration of benzodiazapenes, anticholinergics, opioids or other sedating medications. Alanis Zapien N.P. Oct 01, 2018 16:32
[2018-10-01] MEDS ORDERED: traMADol 50mg tab ORAL PRN (19:45)
--- NOTE | 2018-10-01 21:29 | Consultation ---
Consult Note Consult Note Cardiology consult Full note dictated#[id number] An Hernandez MD Oct 01, 2018 21:28
[2018-10-01] MEDS: TraZODone 50mg tab ORAL PRN (21:52)
[2018-10-01] MEDS: Lactobacillus-GG tablet ORAL SCH (21:53)
[2018-10-01] MEDS: Atorvastatin 20mg tab ORAL SCH (21:53)
[2018-10-01] MEDS: HydrALAZINE 25mg tab ORAL SCH (21:53)
--- NOTE | 2018-10-01 22:15 | Consultation ---
DATE OF CONSULTATION: 10/01/2018 CARDIOLOGY CONSULTATION CONSULTING PHYSICIAN: An Hernandez M.D. REQUESTING PHYSICIAN: Nabila Simeon M.D. I am covering for Dr. Scott. REASON FOR CONSULT: Syncope. HISTORY OF PRESENT ILLNESS: This is an 88-year-old woman with a history of coronary artery disease, remote history of myocardial infarction, type 2 diabetes, hyperlipidemia, hypertension, and peripheral vascular disease, who was admitted following a syncopal episode. Per the patient's son, she was sitting eating dinner with her family when she suddenly slumped over and became transiently unresponsive. She was brought to the emergency room where her initial blood pressure is recorded at 143/71, pulse 80, respirations 20, and pulse oximeter 98% on room air. She was admitted for further treatment. She has been stable on telemetry. Review of her previous records from [facility] indicate that she had a recent echo showing an ejection fraction of 65% with a small inferior wall hypokinetic area and no significant valve disease. She also had a recent lower extremity revascularization procedure with left superficial femoral and popliteal atherectomy and right superficial femoral and popliteal angioplasty on 09/27/2018. PAST MEDICAL HISTORY: As noted above. 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 MEDICATIONS: Amlodipine 10 mg daily, Avapro 300 mg daily, ceftriaxone 1 g IV q.24 hours, Lipitor 40 mg daily, gabapentin 300 mg daily, hydralazine 25 mg q.12 hours, tramadol 100 mg q.6 hours p.r.n., apixaban 5 mg p.o. b.i.d., aspirin 81 mg daily, Protonix 40 mg p.o. daily, insulin sliding scale, and Tylenol p.r.n. ALLERGIES: No known drug allergies. SOCIAL HISTORY: The patient resides at a convalescent home. No history of alcohol or tobacco abuse. PHYSICAL EXAMINATION: VITAL SIGNS: Blood pressure is 143/71, pulse 80 and regular, respirations 20, and afebrile. GENERAL: Alert, elderly appearing white female, in no acute distress. HEENT: Normocephalic and atraumatic. Pupils are equal, round, and reactive to light. Sclerae anicteric. Oral mucosa are moist. NECK: Supple. There is no jugular venous distention. No carotid bruits. LUNGS: Clear to auscultation anteriorly. HEART: Regular S1, S2. No murmur or S3. ABDOMEN: Soft, obese, and nontender. No palpable mass. EXTREMITIES: A 1+ pedal edema bilaterally. A 1+ dorsalis pedis pulses bilaterally. LABORATORY AND DIAGNOSTIC DATA: Hemoglobin 10.2, hematocrit 31.9, and white blood count 12,200. Sodium 135, potassium 5.4, BUN 41, and creatinine 1.3. Troponin 0.01. Urinalysis 15 to 20 white blood cells, few bacteria, and 3+ leukocyte esterase. EKG shows normal sinus rhythm at the rate of 80 beats per minute. Q-waves inferiorly. No ST-segment or T-wave changes. PLAN AND ASSESSMENT: The patient is an 88-year-old woman with multiple chronic medical problems as noted above, who was admitted following a syncopal episode. She is Farsi speaking and history was obtained from the chart as well as from her family. She herself is unable to give much history. She is ruling out for myocardial infarction with negative troponins. She has not had any significant arrhythmias on telemetry. Review of the old records indicate that she has had a previous history of syncope felt due to autonomic dysfunction. I suspect that it is the case currently. She may have transiently become hypotensive or had hypotension due to volume depletion possibly related to her current urinary tract infection. I would favor continuing her current medications. Orthostatic vital signs can be obtained lying and sitting. However, she is not ambulatory, so standing vital signs would not be obtainable. We would maintain hydration and would treat for urinary tract infection. Empiric antibiotics have been started pending culture results. Dr. Scott will continue to follow the patient starting 10/03/2018. An Hernandez M.D. DR: KAYLEE JOB#: [id number] CC:
[2018-10-02] VITALS: BP 149/73
[2018-10-02] MEDS: cefTRIAXone 1 GM in D5W 55 ML IVPB SCH (02:17)
[2018-10-02 04:00] VITALS: BP 144/60
[2018-10-02 05:50] LABS: BASOPHILS % (AUTO) 1.1 % (0.0-2.0); EOSINOPHILS % (AUTO) 3.7 % (0.0-3.0); HEMATOCRIT 28.9 % (37.0-47.0); HEMOGLOBIN 9.4 G/DL (12.0-16.0); LYMPHOCYTES % (AUTO) 29.5 % (20.0-45.0); MEAN CORPUSCULAR VOLUME 91 FL (80-99); MONOCYTES % (AUTO) 5.5 % (1.0-10.0); NEUTROPHILS % (AUTO) 60.2 % (45.0-75.0); PLATELET COUNT 350 K/UL (150-450); RED BLOOD COUNT 3.17 M/UL (4.20-5.40); RED CELL DISTRIBUTION WIDTH 11.9 % (11.6-14.8); WHITE BLOOD COUNT 8.8 K/UL (4.8-10.8)
[2018-10-02 06:04] LABS: ANION GAP 6 mmol/L (5-15); BLOOD UREA NITROGEN 31 mg/dL (7-18); CALCIUM 9.2 MG/DL (8.5-10.1); CARBON DIOXIDE 29 MMOL/L (21-32); CHLORIDE 102 MMOL/L (98-107); CREATININE 1.2 MG/DL (0.55-1.30); SODIUM 137 MMOL/L (136-145)
[2018-10-02] MEDS: NovoLOG Insulin Flexpen SUBQ SCH ×4 (06:31→20:58)
[2018-10-02 08:00] VITALS: BP 145/68
[2018-10-02] MEDS: Aspirin Baby 81mg ORAL SCH (09:14)
[2018-10-02] MEDS: Irbesartan 150mg tablet ORAL SCH (09:15)
[2018-10-02] MEDS: HydrALAZINE 25mg tab ORAL SCH ×2 (09:15→20:59)
[2018-10-02] MEDS: Lactobacillus-GG tablet ORAL SCH ×2 (09:15→20:58)
[2018-10-02] MEDS: Eliquis 2.5mg tablet ORAL SCH ×2 (09:15→17:35)
[2018-10-02 12:00] VITALS: BP 144/64
--- NOTE | 2018-10-02 14:12 | General Progress Note ---
Assessment/Plan Status: doing well Assessment: Assessment: - Synccope - HTN - DM - Acute Kidney injury - low back pain - constipation Plan: plan: - pt mobility - renal us - colace 100 mg bid - awaiting neurology recommendations dc planning in next 1 to 2 days discussed with son Subjective Date patient seen: Oct 02, 2018 Gastrointestinal/Abdominal: Reports: constipated Allergies: Coded Allergies: No Known Allergies (Unverified , 09/30/18) All Systems: reviewed and negative except above Subjective low back pain Objective Last 24 Hour Vital Signs Date Time Temp Pulse Resp B/P (MAP) Pulse Ox O2 Delivery O2 Flow Rate FiO2 10/02/18 12:00 97.9 79 20 144/64 (90) 96 10/02/18 11:35 82 10/02/18 09:15 145/68 10/02/18 09:15 145/68 10/02/18 09:15 85 145/68 10/02/18 09:00 Room Air 10/02/18 08:08 74 10/02/18 08:00 97.3 85 20 145/68 (93) 97 10/02/18 04:00 97.0 68 16 144/60 (88) 97 10/02/18 04:00 71 10/02/18 00:00 97.5 84 20 149/73 (98) 97 10/02/18 00:00 80 10/01/18 22:00 78 77 10/01/18 21:53 151/67 10/01/18 21:00 Room Air 10/01/18 20:00 98.1 80 20 146/60 (88) 95 10/01/18 20:00 93 10/01/18 16:00 97.6 80 20 143/71 (95) 98 10/01/18 16:00 96 Intake and Output 10/01/18 10/02/18 19:00 07:00 Intake Total 240 ml 55 ml Output Total 300 ml 700 ml Balance -60 ml -645 ml Intake Oral 240 ml IV Total 55 ml Output Urine Total 300 ml 700 ml # Voids 3 Laboratory Tests 10/02/18 04:50: White Blood Count 8.8, Red Blood Count 3.17L, Hemoglobin 9.4L, Hematocrit 28.9L , Mean Corpuscular Volume 91, Mean Corpuscular Hemoglobin 29.5, Mean Corpuscular Hemoglobin Concent 32.4, Red Cell Distribution Width 11.9, Platelet Count 350, Mean Platelet Volume 6.3L, Neutrophils (%) (Auto) 60.2, Lymphocytes ( %) (Auto) 29.5, Monocytes (%) (Auto) 5.5, Eosinophils (%) (Auto) 3.7H, Basophils (%) (Auto) 1.1, Sodium Level 137, Potassium Level 5.0, Chloride Level 102, Carbon Dioxide Level 29, Anion Gap 6, Blood Urea Nitrogen 31H, Creatinine 1.2, Estimat Glomerular Filtration Rate , Glucose Level 163H, Calcium Level 9.2 , Magnesium Level 1.4L Height (Feet): 5 Height (Inches): 4.00 Weight (Pounds): 160 General Appearance: no apparent distress, alert EENT: PERRL/EOMI, pharynx normal Neck: non-tender, supple Cardiovascular: normal rate, regular rhythm, no gallop/murmur, no JVD Respiratory/Chest: chest wall non-tender, normal breath sounds, no respiratory distress Abdomen: non tender, soft, no mass Extremities: normal range of motion Edema: no edema noted Arm (L), no edema noted Arm (R), no edema noted Leg (L), no edema noted Leg (R), no edema noted Pedal (L), no edema noted Pedal (R), no edema noted Generalized Neurologic: oriented x 3 Skin: warm/dry Lymphatic: normal anterior cervical (L), normal anterior cervical (R), normal posterior cervical (L), normal posterior cervical (R), normal submandibular (L) , normal submandibular (R), normal supraclavicular (L), normal supraclavicular ( R), normal axillary (L), normal axillary (R), normal inguinal (L), normal inguinal (R), normal other Nabila Simeon MD Oct 02, 2018 14:12
--- NOTE | 2018-10-02 15:16 | Cardiology Progress Note ---
Assessment/Plan Problem List: (1) Syncope (2) Leukocytosis (3) UTI (urinary tract infection) Status: stable, progressing Status Narrative Pt adm w/ syncope in setting of UTI. She is orthostatic, w/ drop from 150s to 138 systolic w/ lying to sitting ( standing not tested, as pt not ambulatory). Suspect ortho hypotension due to autonomic insufficiency and UTI, ? vol depletion causing syncope on admission. Assessment/Plan Continue current rx - abx for UTI Avoid aggressive control of BP Possible dc to rehab tomorrow if stable. d/w Dr. Simeon. Subjective ROS Limited/Unobtainable: No Subjective Cardiology for Dr. Scott Pt c/o back pain intermittently. No dizziness or syncope. Objective Last 24 Hour Vital Signs Date Time Temp Pulse Resp B/P (MAP) Pulse Ox O2 Delivery O2 Flow Rate FiO2 10/02/18 12:00 97.9 79 20 144/64 (90) 96 10/02/18 11:35 82 10/02/18 09:15 145/68 10/02/18 09:15 145/68 10/02/18 09:15 85 145/68 10/02/18 09:00 Room Air 10/02/18 08:08 74 10/02/18 08:00 97.3 85 20 145/68 (93) 97 10/02/18 04:00 97.0 68 16 144/60 (88) 97 10/02/18 04:00 71 10/02/18 00:00 97.5 84 20 149/73 (98) 97 10/02/18 00:00 80 10/01/18 22:00 78 77 10/01/18 21:53 151/67 10/01/18 21:00 Room Air 10/01/18 20:00 98.1 80 20 146/60 (88) 95 10/01/18 20:00 93 10/01/18 16:00 97.6 80 20 143/71 (95) 98 10/01/18 16:00 96 General Appearance: WD/WN, no apparent distress, alert EENT: PERRL/EOMI Neck: supple, no JVD Rhythm: NSR Cardiovascular: normal peripheral pulses, normal rate, regular rhythm, no gallop/murmur Respiratory/Chest: lungs clear Abdomen: non tender, soft Extremities: trace edema Intake and Output 10/01/18 10/02/18 19:00 07:00 Intake Total 240 ml 55 ml Output Total 300 ml 700 ml Balance -60 ml -645 ml Intake Oral 240 ml IV Total 55 ml Output Urine Total 300 ml 700 ml # Voids 3 Laboratory Tests Test 10/02/18 04:50 White Blood Count 8.8 K/UL (4.8-10.8) Red Blood Count 3.17 M/UL (4.20-5.40) L Hemoglobin 9.4 G/DL (12.0-16.0) L Hematocrit 28.9 % (37.0-47.0) L Mean Corpuscular Volume 91 FL (80-99) Mean Corpuscular Hemoglobin 29.5 PG (27.0-31.0) Mean Corpuscular Hemoglobin Concent 32.4 G/DL (32.0-36.0) Red Cell Distribution Width 11.9 % (11.6-14.8) Platelet Count 350 K/UL (150-450) Mean Platelet Volume 6.3 FL (6.5-10.1) L Neutrophils (%) (Auto) 60.2 % (45.0-75.0) Lymphocytes (%) (Auto) 29.5 % (20.0-45.0) Monocytes (%) (Auto) 5.5 % (1.0-10.0) Eosinophils (%) (Auto) 3.7 % (0.0-3.0) H Basophils (%) (Auto) 1.1 % (0.0-2.0) Sodium Level 137 MMOL/L (136-145) Potassium Level 5.0 MMOL/L (3.5-5.1) Chloride Level 102 MMOL/L (98-107) Carbon Dioxide Level 29 MMOL/L (21-32) Anion Gap 6 mmol/L (5-15) Blood Urea Nitrogen 31 mg/dL (7-18) H Creatinine 1.2 MG/DL (0.55-1.30) Estimat Glomerular Filtration Rate mL/min (>60) Glucose Level 163 MG/DL (74-106) H Calcium Level 9.2 MG/DL (8.5-10.1) Magnesium Level 1.4 MG/DL (1.8-2.4) L Microbiology Date/Time Source Procedure Growth Status 10/01/18 01:00 Urine,Clean Catch Urine Culture - Preliminary Gram Negative [place] Resulted 10/01/18 01:00 Rectum Received An Hernandez MD Oct 02, 2018 15:16
[2018-10-02] MEDS ORDERED: NS 275ml ONE (15:19)
[2018-10-02] MEDS ORDERED: Tubing IV Secondary IV ONE (15:19)
[2018-10-02 16:00] VITALS: BP 136/70
--- NOTE | 2018-10-02 17:21 | Neurology Progress Note ---
Interim History Interim History ROS Limited/Unobtainable: Yes Objective Physical Exam Last Vital Signs Date Time Temp Pulse Resp B/P (MAP) Pulse Ox O2 Delivery O2 Flow Rate FiO2 10/02/18 16:00 97.5 93 20 136/70 (92) 96 10/02/18 09:00 Room Air Laboratory Tests Test 10/02/18 04:50 White Blood Count 8.8 K/UL (4.8-10.8) Red Blood Count 3.17 M/UL (4.20-5.40) L Hemoglobin 9.4 G/DL (12.0-16.0) L Hematocrit 28.9 % (37.0-47.0) L Mean Corpuscular Volume 91 FL (80-99) Mean Corpuscular Hemoglobin 29.5 PG (27.0-31.0) Mean Corpuscular Hemoglobin Concent 32.4 G/DL (32.0-36.0) Red Cell Distribution Width 11.9 % (11.6-14.8) Platelet Count 350 K/UL (150-450) Mean Platelet Volume 6.3 FL (6.5-10.1) L Neutrophils (%) (Auto) 60.2 % (45.0-75.0) Lymphocytes (%) (Auto) 29.5 % (20.0-45.0) Monocytes (%) (Auto) 5.5 % (1.0-10.0) Eosinophils (%) (Auto) 3.7 % (0.0-3.0) H Basophils (%) (Auto) 1.1 % (0.0-2.0) Sodium Level 137 MMOL/L (136-145) Potassium Level 5.0 MMOL/L (3.5-5.1) Chloride Level 102 MMOL/L (98-107) Carbon Dioxide Level 29 MMOL/L (21-32) Anion Gap 6 mmol/L (5-15) Blood Urea Nitrogen 31 mg/dL (7-18) H Creatinine 1.2 MG/DL (0.55-1.30) Estimat Glomerular Filtration Rate mL/min (>60) Glucose Level 163 MG/DL (74-106) H Calcium Level 9.2 MG/DL (8.5-10.1) Magnesium Level 1.4 MG/DL (1.8-2.4) L Impression/Recommendations Problems: (1) Leukocytosis (2) UTI (urinary tract infection) (3) Syncope Assessment & Plan: Appears to be returned to baseline functioning. As per nursing report, family have visited with patient and patient is returned to baseline- interacting appropriately in Far with family members. She has dementia per report but has not been drowsy or unresponsive since her admitting episode. Status: doing well, stable, tolerating diet Alanis Zapien N.P. Oct 02, 2018 17:21
[2018-10-02] MEDS: Docusate 100mg cap ORAL SCH (17:35)
[2018-10-02 18:33] LABS: ALANINE AMINOTRANSFERASE 24 U/L (12-78); ALBUMIN 3.1 G/DL (3.4-5.0); ALBUMIN/GLOBULIN RATIO 0.7 (1.0-2.7); ALKALINE PHOSPHATASE 80 U/L (46-116); ANION GAP 11 mmol/L (5-15); ASPARTATE AMINO TRANSFERASE 10 U/L (15-37); BILIRUBIN,TOTAL 0.3 MG/DL (0.2-1.0); BLOOD UREA NITROGEN 29 mg/dL (7-18); CALCIUM 9.1 MG/DL (8.5-10.1); CARBON DIOXIDE 25 MMOL/L (21-32); CHLORIDE 99 MMOL/L (98-107); CREATININE 1.4 MG/DL (0.55-1.30); POTASSIUM 4.6 MMOL/L (3.5-5.1); SODIUM 135 MMOL/L (136-145)
[2018-10-02 20:00] VITALS: BP 139/85
[2018-10-02] MEDS: TraZODone 50mg tab ORAL PRN (20:58)
[2018-10-02] MEDS: Atorvastatin 20mg tab ORAL SCH (20:59)
[2018-10-03] VITALS: BP 136/81
[2018-10-03] MEDS: cefTRIAXone 1 GM in D5W 55 ML IVPB SCH (01:12)
[2018-10-03 04:00] VITALS: BP 154/72
[2018-10-03] MEDS: NovoLOG Insulin Flexpen SUBQ SCH ×3 (06:06→16:30)
[2018-10-03 07:38] LABS: EOSINOPHILS % (AUTO) 4.5 % (0.0-3.0); HEMATOCRIT 33.3 % (37.0-47.0); HEMOGLOBIN 10.7 G/DL (12.0-16.0); LYMPHOCYTES % (AUTO) 27.8 % (20.0-45.0); MEAN CORPUSCULAR VOLUME 92 FL (80-99); MONOCYTES % (AUTO) 4.8 % (1.0-10.0); PLATELET COUNT 387 K/UL (150-450); RED BLOOD COUNT 3.63 M/UL (4.20-5.40); RED CELL DISTRIBUTION WIDTH 12.2 % (11.6-14.8); WHITE BLOOD COUNT 8.9 K/UL (4.8-10.8)
[2018-10-03 07:59] LABS: ANION GAP 10 mmol/L (5-15); BLOOD UREA NITROGEN 25 mg/dL (7-18); CALCIUM 9.9 MG/DL (8.5-10.1); CARBON DIOXIDE 26 MMOL/L (21-32); CHLORIDE 100 MMOL/L (98-107); CREATININE 1.1 MG/DL (0.55-1.30); POTASSIUM 4.5 MMOL/L (3.5-5.1); SODIUM 136 MMOL/L (136-145)
[2018-10-03 08:00] VITALS: BP 134/71
[2018-10-03] MEDS: Aspirin Baby 81mg ORAL SCH (08:32)
[2018-10-03] MEDS: Docusate 100mg cap ORAL SCH (08:32)
[2018-10-03] MEDS: Irbesartan 150mg tablet ORAL SCH (08:33)
[2018-10-03] MEDS: Eliquis 2.5mg tablet ORAL SCH (08:34)
[2018-10-03] MEDS: HydrALAZINE 25mg tab ORAL SCH (08:34)
[2018-10-03] MEDS: Lactobacillus-GG tablet ORAL SCH (08:34)
[2018-10-03 09:00] VITALS: BP_SYST 117; BP_SYST 120; BP_DIAS 60
--- NOTE | 2018-10-03 11:42 | Diagnostic Imaging Report ---
Indication: Back pain Technique: 4 views of the lumbar spine Comparison: None Findings: Abundant overlying colonic stool somewhat limits evaluation. There is evidence of bilateral L4 spondylolysis, better demonstrated on the lateral than on the oblique views. There is grade 1-2 spondylolisthesis of L4 on L5. There is secondary disc degeneration with near obliteration of the disc space and remodeling of the adjacent endplates. The remainder the bony alignment is normal. The vertebral body heights are preserved. The bones appear osteoporotic. No definite acute fractures. There is abundant stool mildly distending the rectum. The pedicles are intact. Sacroiliac joint spaces are preserved. There is mild degenerative narrowing of the lower facet joints. There are multilevel anterior osteophytes. There is an inferior vena cava filter Impression: Bilateral L4 spondylolysis, grade 1-2 spondylolisthesis of L4 on L5, and secondary degenerative change Mild degenerative changes elsewhere, as described Osteoporotic change Abundant stool, may indicate constipation and possible rectal fecal impaction. Correlate with clinical findings
--- NOTE | 2018-10-03 11:46 | Diagnostic Imaging Report ---
Indication: Abnormal renal function tests Technique: Grayscale and duplex images of the kidneys, retroperitoneum, and bladder were obtained. Comparison: none Findings: Right kidney measures 9.6 cm in length. Left kidney measures 8.8 cm in length. Both kidneys demonstrate normal echogenicity. No hydronephrosis. There are small renal cysts bilaterally.. Normal inferior vena cava. Bladder is normal. Impression: Negative for hydronephrosis Incidental finding small bilateral renal cysts.
[2018-10-03 12:00] VITALS: BP 118/58
[2018-10-03 16:00] VITALS: BP 141/73
[2018-10-03] MEDS ORDERED: NS 500ML ONE (18:02)
[2018-10-03] MEDS ORDERED: Tubing IV Secondary IV ONE (18:02)
--- NOTE | 2018-10-04 09:19 | Discharge Summary ---
Discharge Summary Discharge Summary _ DATE OF ADMISSION: 09/30/2018 DATE OF DISCHARGE: 10/03/2018 DISCHARGED BY: REASON FOR ADMISSION: 88 years old female with past medical history of dementia, atrial fibrillation/ flutter, hypertension, diabetes mellitus, resident of alf facility , presented to emergency room for evaluation after syncopal episode. Patient was unresponsive for short period of time. It was difficult to ascertain patient's symptoms, given her dementia. According to patient's daughter , patient prior complained of chronic back pain , but she felt is was more positional problem , as patient spent long hours sitting without being moved. Patient mostly bedridden. No reported fever or chills. No difficulty with eating. Upon evaluation vital signs were stable. Laboratory workup revealed leukocytosis with WBC 14.3, hemoglobin 10, hematocrit 30.6, platelet count 353. BUN 40, creatinine 1.3. Glucose 204. Urinalysis revealed +1 protein, +1 blood, +3 leukocyte esterase , pyuria, some bacteria and yeast . Troponin negative. Pro BNP 273. EKG revealed normal sinus rhythm, no acute ischemic changes. Chest x-ray revealed no acute cardiopulmonary pathology. CT of the head demonstrated no acute intracranial findings. Encephalomalacia right MCA territory noted. Patient started on IV hydration pancultured , started on empiric antibiotic for UTI and admitted for further management to telemetry floor. CONSULTANTS: metal stamper Dr. Quintanilla neurologist Dr. Doe [facility]: Patient admitted to telemetry floor. Supervisor Rides closely followed. Echocardiogram revealed estimated left ventricular ejection fraction of 60% with mild left ventricular hypertrophy. No evidence of wall motion abnormality. Right ventricular systolic pressure of 14. Serial troponin were negative. EKG revealed no acute ischemic changes. Patient was ruled out for acute MN. Patient was observed on monitored floor. Patient demonstrated sinus rhythm with some PVC, no acute ischemic changes, no evidence of significant arrhythmia. Echocardiogram revealed preserved ejection fraction of 60% with mild left ventricular hypertrophy. No evidence of wall motion abnormality. Right ventricular systolic pressure of 14. Patient initially had orthostatic drop from 150 to 130 from lying to sitting position. Per metal stamper, suspected orthostatic hypotension due to autonomic insufficiency and UTI and questionable volume depletion, causing syncope on admission. Supervisor Rides recommended to avoid over-aggressive control of blood pressure and continue treatment for UTI. Neurologist followed. Neuro checks initially, first 24 hours , were done every 4 hours no changes. Patient was continued with IV hydration. Patient was frequently reoriented. Use of benzodiazepine, anticholinergic, opioid, and other sedatives were avoided. Urine culture revealed gram-negative rods. Patient was on antibiotic for urinary tract infection Blood pressure was managed with Norvasc, hydralazine and Avapro. Antiplatelet therapy with aspirin and statin continued. GI prophylaxis provided. Blood sugar was managed with sliding scale of insulin. X-ray of lumbar spine revealed bilateral L4 spondylolysis, grade 1-2 spondylolisthesis of L4 on L5, and secondary degenerative changes. Mild degenerative changes elsewhere, as described. Osteoporotic changes. Pain management was addressed, and pain was controlled. Bowel regimen instituted. Supportive care provided. Renal parameters and electrolytes were closely monitored. Electrolytes corrected as needed. Magnesium replaced. Hyperkalemia treated. Nephrotoxins were avoided. Renal ultrasound was negative for hydronephrosis bilateral kidneys both kidney demonstrated normal echogenicity. Acute kidney injury was prerenal and likely precipitated by dehydration. Prior to discharge BUN down to 25 from initial 40, creatinine 1.1. Patient stabilized. Leukocytosis resolved. Patient was ready for discharge to alf facility for continuation of care. FINAL DIAGNOSES: Syncopal episode in setting of UTI-suspected orthostatic hypotension due to autonomic insufficiency and UTI and questionable volume depletion Hypertension Diabetes mellitus Acute kidney injury-resolved Urinary tract infection Low back pain Constipation Leukocytosis resolved DISCHARGE MEDICATIONS: See Medication Reconciliation list. DISCHARGE INSTRUCTIONS: Patient was discharged to the alf facility. Follow up with medical doctor at the facility. I have been assigned to dictate discharge summary for this account. I was not involved in the patient's management. Octavia Hazel NP Oct 04, 2018 09:19
--- NOTE | 2018-10-07 16:07 | Cardiology Report ---
APPROVED REPORT EKG Measurement Heart [id number] Normal sinus rhythm Inferior infarct, age undetermined Abnormal ECG
== END 2018-10-03 18:03 | DRG 312 ==
LOC: EDBD 23:21 → EMR 23:44 → 2E 23:53 → EDBEDREQ 10-01 00:13 → 2W 10-01 01:41 → 2E 10-02 17:06
DX: I95.1 Orthostatic hypotension (principal); N39.0 Urinary tract infection, site not specified; N17.9 Acute kidney failure, unspecified; I10 Essential (primary) hypertension; E11.9 Type 2 diabetes mellitus without complications; M54.5 Low back pain; K59.00 Constipation, unspecified; I25.10 Atherosclerotic heart disease of native coronary artery without angina pectoris; I48.91 Unspecified atrial fibrillation; Z79.01 Long term (current) use of anticoagulants; Z86.73 Personal history of transient ischemic attack (TIA), and cerebral infarction without residual deficits; F03.90 Unspecified dementia, unspecified severity, without behavioral disturbance, psychotic disturbance, mood disturbance, and anxiety; I25.2 Old myocardial infarction; E78.5 Hyperlipidemia, unspecified; I73.9 Peripheral vascular disease, unspecified
CPT/HCPCS: 36415; 70450; 71045; 72110; 76770; 80048; 80053; 81003; 82550; 82962; 83735; 83880; 84484; 85025; 85610; 85730; 87081; 87086; 93005; 93306; 99285; J1815